=== PATIENT | female | born 1965 | race Caucasian/White ===

== ENCOUNTER 2024-06-09 21:08 | Emergency (ER) | payer SELFPAY ==
[~2024-06-09] VITALS: Ht 157.5 cm; Wt 63.5 kg
[2024-06-09 21:11] VITALS: BP 138/70; PULSE 107; O2SAT 94
[2024-06-09 21:39] VITALS: RESP 18
[2024-06-09 22:06] VITALS: TEMP 98.9
== END 2024-06-09 22:07 | disposition left against medical advice (07) ==
LOC: ER 21:09
DX: F10.129 Alcohol abuse with intoxication, unspecified (principal); F41.9 Anxiety disorder, unspecified; F32.A Depression, unspecified; Z20.822 Contact with and (suspected) exposure to COVID-19
CPT/HCPCS: 36415; 87811; 99283